=== PATIENT | male | born 1990 | race Caucasian/White ===

== ENCOUNTER 2016-06-30 11:35 | Emergency (ER) | payer MEDICAID | END 2016-06-30 13:30 | disposition left against medical advice (07) | LOC: D.ER 11:35 | DX: R05 Cough (principal) ==

== ENCOUNTER 2016-07-09 13:48 | Emergency (ER) | payer MEDICAID ==
[2016-07-09 14:30] LABS: BASOPHILS 0.1 % (0.0-2.0); EOSINOPHILS 0.8 % (0-7); HEMATOCRIT 40.1 % (42.0-54.0); HEMOGLOBIN 13.7 g/dL (13.5-17.5); IMMATURE GRANULOCYTES 0.5 % (0-5); LYMPHOCYTES 6.4 % (15-50); MCH 30.6 pg (26.0-34.0); MCHC 34.2 g/dL (31.0-37.0); MCV 89.5 fL (80.0-100.0); MEAN PLATELET VOLUME 9.3 fL (7.4-10.4); MONOCYTES 5.9 % (2-11); NEUTROPHILS 86.3 % (40-80); PLATELET COUNT 436 10x3/uL (130-400); RBC 4.48 10x6/uL (4.20-6.10); RDW 13.1 % (11.5-14.5); WBC 19.2 10x3/uL (4.8-10.8)
== END 2016-07-09 15:30 | disposition home or self-care (01) ==
LOC: D.ER 13:48
PROVIDERS: Emergency Medicine
DX: J18.9 Pneumonia, unspecified organism (principal); F17.200 Nicotine dependence, unspecified, uncomplicated

== ENCOUNTER 2017-04-20 21:01 | Emergency (ER) | payer MEDICAID ==
[2017-04-20 21:49] LABS: APPEARANCE CLEAR (CLEAR); BILIRUBIN NEGATIVE (NEGATIVE); COLOR YELLOW (YELLOW); GLUCOSE NEGATIVE (NEGATIVE); KETONE NEGATIVE (NEGATIVE); NITRITE NEGATIVE (NEGATIVE); PROTEIN TRACE mg/dL (NEGATIVE); SPECIFIC GRAVITY 1.025 (1.005-1.020); UROBILINOGEN NORMAL (NORMAL)
[2017-04-20 21:49] LABS: BASOPHILS 0.1 % (0-2); EOSINOPHILS 2.5 % (0-7); HEMATOCRIT 51.7 % (42.0-54.0); IMMATURE GRANULOCYTES 0.3 % (0-5); LYMPHOCYTES 4.8 % (15-50); MCH 32.4 pg (26.0-34.0); MCHC 34.8 g/dL (31.0-37.0); MCV 93.2 fL (80.0-100.0); MEAN PLATELET VOLUME 9.7 fL (7.4-10.4); MONOCYTES 4.9 % (2-11); NEUTROPHILS 87.4 % (40-80); RBC 5.55 10x6/uL (4.20-6.10); RDW 12.2 % (11.5-14.5); WBC 13.9 10x3/uL (4.8-10.8)
[2017-04-20 21:51] LABS: PLATELET COUNT 170 10x3/uL (130-400)
[2017-04-20 22:09] LABS: ALBUMIN 4.1 g/dL (3.4-5.0); ANION GAP 14.6 mmol/L (8-16); BILIRUBIN - TOTAL 0.73 mg/dL (0.2-1.3); CALCIUM 9.3 mg/dL (8.5-10.1); CARBON DIOXIDE 27.4 mmol/L (21.0-32.0); CREATININE - SERUM 1.3 mg/dL (0.6-1.3); PROTEIN - SERUM 7.2 g/dL (6.4-8.2)
== END 2017-04-20 22:51 | disposition home or self-care (01) ==
LOC: D.ER 21:01
PROVIDERS: Family Medicine
DX: R10.13 Epigastric pain (principal)

== ENCOUNTER 2017-10-21 12:46 | Emergency (ER) | payer MEDICAID ==
[~2017-10-21] VITALS: Ht 175.3 cm; Wt 104.5 kg
[2017-10-21 12:51] VITALS: Ht 175.3 cm; Wt 104.5 kg
[2017-10-21] MEDS ORDERED: ZANTAC150 MG PO (12:53)
[2017-10-21 14:54] LABS: BASOPHILS 0.2 % (0-2); EOSINOPHILS 3.5 % (0-7); HEMATOCRIT 43.3 % (42.0-54.0); HEMOGLOBIN 15.5 g/dL (13.5-17.5); IMMATURE GRANULOCYTES 0.2 % (0-5); LYMPHOCYTES 12.4 % (15-50); MCH 32.2 pg (26.0-34.0); MCHC 35.8 g/dL (31.0-37.0); MCV 89.8 fL (80.0-100.0); MEAN PLATELET VOLUME 9.6 fL (7.4-10.4); NEUTROPHILS 75.7 % (40-80); PLATELET COUNT 197 10x3/uL (130-400); RBC 4.82 10x6/uL (4.20-6.10); RDW 12.2 % (11.5-14.5)
[2017-10-21 15:25] LABS: ALBUMIN 4.1 g/dL (3.4-5.0); ANION GAP 13.6 mmol/L (8-16); BILIRUBIN - TOTAL 0.65 mg/dL (0.2-1.3); CALCIUM 8.8 mg/dL (8.5-10.1); CARBON DIOXIDE 25.3 mmol/L (21.0-32.0); CREATININE - SERUM 1.3 mg/dL (0.6-1.3); POTASSIUM - SERUM 3.9 mmol/L (3.5-5.1); PROTEIN - SERUM 7.5 g/dL (6.4-8.2)
[2017-10-21 15:59] VITALS: BP 134/77
== END 2017-10-21 15:58 | disposition home or self-care (01) ==
LOC: D.ER 12:46
PROVIDERS: Family Medicine
DX: T67.5XXA Heat exhaustion, unspecified, initial encounter (principal); X58.XXXA Exposure to other specified factors, initial encounter; Y93.01 Activity, walking, marching and hiking; Y92.89 Other specified places as the place of occurrence of the external cause; R07.9 Chest pain, unspecified; K21.9 Gastro-esophageal reflux disease without esophagitis

== ENCOUNTER 2018-07-29 18:24 | Emergency (ER) | payer MEDICAID ==
[~2018-07-29] VITALS: Ht 175.3 cm; Wt 115.5 kg
[~2018-07-29 18:24] MED LIST: ZANTAC150 MG PO
[2018-07-29 18:29] VITALS: BP 134/94; Ht 175.3 cm; Wt 115.5 kg
[2018-07-29] MEDS ORDERED: OMEPRAZOLE20 M1 PO (18:31)
== END 2018-07-29 22:57 | disposition home or self-care (01) ==
LOC: D.ER 18:24
DX: R51 Headache (principal)